=== PATIENT | female | born 2000 | race Caucasian/White ===

== ENCOUNTER 2023-07-02 02:31 | Observation (INO) | payer BC, SELFPAY ==
[2023-07-02] VITALS (39 sets, daily range): BP systolic 121–187; BP diastolic 57–110; PULSE 76–106; RESP 16–20; TEMP 36.4–37; O2SAT 94–100; BMI 53.1
--- NOTE | 2023-07-02 02:40 | PC.NURSE ---
in room talking with patient at this time.
--- NOTE | 2023-07-02 02:45 | PC.NURSE ---
india Martin at this time.
--- NOTE | 2023-07-02 02:47 | HMH.EDGENADL ---
Discharge Plan Disposition Patient Disposition: Admitted Condition: Fair Chief Complaint: Recheck/Abnormal Lab/Rx Clinical Impressions Clinical Impression: Pre-eclampsia Qualifiers: Trimester: unspecified trimester Qualified Code(s): O14.90 - Unspecified pre-eclampsia, unspecified trimester Discharge ED Provider: Cayla Briggs General Adult HPI General Stated complaint: High Blood Pressure, Time Seen by Provider: 07/02/23 02:36 History of Present Illness HPI narrative: This 23-year-old female G1, P1 6 days from induced vaginal delivery presents to the ER with concerns of hypertension. The day after delivery patient states she developed hypertension. She ended up spending 5 days in the hospital after delivery due to hypertension and was discharged home in the last day and a half. She never received IV magnesium while hospitalized. She was discharged with blood pressures in the mid 130s and was instructed to call with blood pressures above 140. She states she has been taking her prescribed labetalol 200 mg every 8 hours as directed and has not missed any doses. Most recent dose was at 10 PM, nearly 5 hours prior to arrival. Patient states anytime she takes the labetalol she gets extremely shaky though it does briefly improve her blood pressure. She states tonight her blood pressure was as low as the mid 140s, but she rechecked it and she has been 166/110 at home. On arrival she was 165/110 in the ER. Patient states she also gets back pain on her blood pressure is high. Patient states she is also taking iron. She states she has not had any changes in urination, no new shortness of breath, no dizziness, patient states she has been having right hand numbness/abnormal sensation since about 32 weeks gestational age. No new neurologic deficits. Patient states she has lower extremity swelling but this has been persistent since 32 weeks of and is actually somewhat improved. Related Data Allergies Allergy/AdvReac Type Severity Reaction Status Date / Time No Known Allergies Allergy Verified 07/02/23 03:03 [facility] Disclaimer: The information contained in this section may have been updated after the patient was seen, as this information can be updated by other users. Social History Smoking Status: Never smoker alcohol intake: never current occupational status: unemployed Travel in the last 8 weeks: None ROS Obtained: Yes All systems reviewed & no additional complaints except as documented Constitutional Constitutional: Denies chills, Denies fever(s), Denies headache(s) and Denies weakness Eyes Eyes: Denies change in vision ENT Ears, Nose, Mouth, and Throat: Denies dizziness, Denies headache(s), Denies nasal congestion and Denies sore throat Cardiovascular Cardiovascular: Denies chest pain, Denies dyspnea and Reports leg edema Respiratory Respiratory: Denies cough and Denies dyspnea Gastrointestinal Gastrointestingal: Denies constipation, diarrhea, nausea or vomiting Genitourinary Female Genitourinary: Denies dysuria Musculoskeletal Musculoskeletal: Denies arthralgias, Denies myalgias, Denies numbness and Denies tingling Integumentary/Breasts Skin/Breast: Denies change in pigmentation Neurologic Neurologic: Denies dizziness, Denies headache(s), Denies numbness, Denies tingling and Denies weakness Physical Exam General General appearance: alert and in no apparent distress Head Head exam: atraumatic and normocephalic Eye Eye exam: Present PERRL and EOMI ENT ENT exam: Present mucous membranes moist Neck Neck exam: Present normal inspection and full ROM Chest Chest inspection: Present symmetric chest wall rise Respiratory Respiratory exam: Present normal lung sounds bilaterally; Absent respiratory distress, wheezes or stridor Cardiovascular Cardiovascular exam: Present regular rate and normal rhythm Abdominal Exam Abdominal exam: Present soft; Absent distention, tenderness, guarding or rebound Comment: Soft, nontender abdomen Extremities Exam Extremities exam: Present full ROM and edema (2+) Back Exam Back exam: Absent CVA tenderness (R) or CVA tenderness (L) Neurological Exam Neurological exam: Present alert, oriented X3 and motor sensory deficit (Right hand numbness is at baseline since 32 weeks gestational age. She says this is unchanged.) Psychiatric Psychiatric exam: Present normal affect and normal mood Skin Skin exam: Present warm, dry and rash (Faint erythematous rash with raised patches over the lumbar back which patient states is from adhesive. No open wounds, no vesicles) Medical Decision Making Nathaniel Inquiry Pt receiving controlled substance: No Orders (Tests/Meds): ED MEDICATIONS Generic Name Dose Route Start Last Admin Trade Name Freq PRN Reason Stop Dose Admin Labetalol HCl 20 mg 07/02/23 02:45 Labetalol 5mg/Ml 20ml Mdv IV 07/02/23 02:46 ONCE ONE ORDERS Category Date Time Status CBC w/Auto Diff [Complete Blood Count Auto Diff] Stat Lab 07/02/23 02:45 Ordered CMP [Comprehensive Metabolic Panel] Stat Lab 07/02/23 02:45 Ordered LDH [Lactate Dehydrogenase] Stat Lab 07/02/23 02:45 Ordered Magnesium Stat Lab 07/02/23 02:45 Ordered Uric Acid Stat Lab 07/02/23 02:45 Ordered Urinalysis and Microscopic Stat Lab 07/02/23 02:45 Ordered Medical Decision Narrative: In summary, this 23year old female presents to the emergency department today with concerns of hypertension 6 days . On initial evaluation patient is hypertensive with blood pressure 165/110 on arrival, otherwise hemodynamically stable, no chest pain or shortness of breath, no CVA tenderness, no abdominal pain or tenderness, no new neurologic deficits, no vision changes, peripheral edema is improved from prior but present at 2+. Differential diagnosis includes but is not limited to preeclampsia, proteinuria, kidney dysfunction, HELLP, thrombocytopenia, risk of eclampsia the patient is not having active seizures at this time or other neurologic deficits. Based on these concerns, I ordered CBC, CMP, urinalysis, LDH, uric acid. Patient received IV labetalol and IV magnesium was ordered for treatment. I discussed this patient with Dr. Marks with OB. He recommended the IV labetalol that I had already ordered as well as IV magnesium and stated there are protocols up on the OB floor for patient's ongoing symptoms. He is in agreement with my laboratory workup. He stated the patient should go directly to OB. She is hypertensive but hemodynamically stable and neurologically intact and does not require other acute management in the ER so she is appropriate for admission to the OB service. Labs have not resulted at the time of her admission. Critical Care Critical Care Time Critical Care Time: No
--- NOTE | 2023-07-02 02:49 | PC.NURSE ---
o/p with at this time.
--- NOTE | 2023-07-02 02:54 | PC.NURSE ---
patient being admitted to OB per .
[2023-07-02 03:05] LABS: Basophils # 0.1 K/mm3 (0-0.2); Basophils % 0.4 % (0.1-2.0); Eosinophils # 0.3 K/mm3 (0.0-0.4); Eosinophils % 2.5 % (0.1-12.0); Hematocrit 26.7 % (37.0-47.0); Hemoglobin 8.5 g/dL (12.2-16.2); Lymphocytes # 2.5 K/mm3 (0.7-4.5); Lymphocytes % 21.3 % (10-50); Mean Corpuscular HGB Conc 31.9 g/dL (31.8-35.4); Mean Corpuscular Hemoglobin 27.1 pg (27.0-31.2); Mean Corpuscular Volume 84.9 fl (81-99); Mean Platelet Volume 8.1 fl (7.4-10.4); Monocytes # 0.5 K/mm3 (0.1-1.0); Monocytes % 4.4 % (1.7-9.3); Neutrophils # 8.3 K/mm3 (1.8-7.8); Neutrophils % 71.4 % (37.0-80.0); Platelet Count 419 K/mm3 (142-424); Red Blood Count 3.14 M/mm3 (4.20-5.40); Red Cell Distribution Width 16.2 % (11.5-17.5); White Blood Count 11.6 K/mm3 (4.8-10.8)
[2023-07-02] MEDS: LABETALOL 5MG/ML 20ML MDV 20 MG IV ×2 (03:05→19:37)
--- NOTE | 2023-07-02 03:05 | PC.NURSE ---
Nurse to nurse report given to Sharda LOZADA
[2023-07-02 03:13] LABS: Alanine Aminotransferase 90 U/L (12-78); Albumin Level 3.4 g/dl (3.5-5.0); Albumin/Globulin Ratio 1.1 (1.1-1.8); Alkaline Phosphatase 139 U/L (38-126); Anion Gap 7.6 mEq/L (5-15); Aspartate Amino Transferase 93 U/L (14-36); Bilirubin,Total 0.3 mg/dl (0.2-1.3); Blood Urea Nitrogen 12 mg/dl (7-17); Calcium 8.6 mg/dl (8.4-10.2); Carbon Dioxide 24 mmol/L (22.0-30.0); Chloride 109 mmol/L (98-107); Creatinine Clearance Estimated 106 mL/min (50-200); Estimated Glomerular Filt Rate 125 ml/min (>60); GFR (African American) 151 ML/MIN (>60); Globulin 3.1 g/dL (1.3-3.2); Glucose 87 mg/dl (74-100); Lactate Dehydrogenase 415 U/L (313-618); Magnesium 1.9 mg/dl (1.6-2.3); Potassium 3.6 mmoL/L (3.5-5.1); Sodium 137 mmol/L (136-145); Total Protein,Serum 6.5 g/dl (6.3-8.2); Uric Acid 6.3 mg/dl (2.5-6.2)
[2023-07-02 03:25] LABS: Activated Partial Thrombo Time 24.2 seconds (22.8-30.6); Fibrinogen 364 mg/dL (229.9-363.5); INR 0.93 (0.9-1.1); Prothrombin Time 10.1 seconds (10.1-12.5)
[2023-07-02] MEDS: MAGNESIUM SULFATE IN WATER 4 GM/50 ML PIGGYBACK IV (03:29)
--- NOTE | 2023-07-02 03:30 | PC.NURSE ---
Patient's DTR are +3 bilateral patella.
[2023-07-02 03:46] LABS: Microscopic, Urine URINE MICROSCOPIC (MICROSCOPIC)
[2023-07-02 03:47] LABS: Appearance,Urine CLEAR (Clear); Bilirubin,Urine Negative (Negative); Blood, Urine 3+ (Negative); Color,Urine YELLOW (Yellow); Glucose,Urine (UA) Negative (Negative); Ketones,Urine Negative (Negative); Leukocyte Esterase,Urine 2+ (Negative); Nitrate,Urine Negative (Negative); PH,Urine 6.5 (5.0-8.5); Protein,Urine Negative (Negative); Specific Gravity, Urine <= 1.005 (1.005-1.030); Urobilinogen,Urine 0.2 EU/dl (0.2)
[2023-07-02] MEDS: MAGNESIUM SULFATE IN WATER 20 GM/500 ML IV.SOLN IV ×2 (03:51→13:59)
[2023-07-02 04:08] LABS: Bacteria,Urine 1+ /lpf
--- NOTE | 2023-07-02 05:10 | PC.NURSE ---
UPONE ENTERING ROOM PT WAS LAYING ON HER LEFT SIDE WITH EYES CLOSED.REPORTS SHE NEEDS TO GO TO BATHROOM ASSISTED PT WITH IV POLE TO BR.PT DENIES ANY H/A,DIZZINESS OR BLURRED VISION. IN BR WITH PT
--- NOTE | 2023-07-02 05:30 | PC.NURSE ---
PT RETURNED TO BED.LUNGS CLEAR,DTR'S 2+,NO CLONUS.2+ PITTING EDEMA,PT DENIES ANY PAIN.NO NEEDS OR CONCERNS VOICED
--- NOTE | 2023-07-02 07:30 | PC.NURSE ---
REPORT GIVEN TO KIERRA EASTMAN AND ALEXIARN
[2023-07-02] MEDS: LABETALOL 100MG TABLET 200 MG PO ×2 (07:32→15:24)
[2023-07-02] MEDS: ACETAMINOPHEN 325MG TAB 650 MG PO (07:36)
[2023-07-02] MEDS: ONDANSETRON 4MG/2ML VIAL 4 MG IV (08:15)
[2023-07-02 08:39] LABS: Basophils # 0.1 K/mm3 (0-0.2); Basophils % 0.4 % (0.1-2.0); Eosinophils # 0.3 K/mm3 (0.0-0.4); Eosinophils % 2.8 % (0.1-12.0); Hematocrit 24.8 % (37.0-47.0); Lymphocytes # 2.2 K/mm3 (0.7-4.5); Lymphocytes % 19.1 % (10-50); Mean Corpuscular HGB Conc 32.2 g/dL (31.8-35.4); Mean Corpuscular Hemoglobin 27.3 pg (27.0-31.2); Mean Corpuscular Volume 84.8 fl (81-99); Mean Platelet Volume 7.9 fl (7.4-10.4); Monocytes # 0.5 K/mm3 (0.1-1.0); Monocytes % 4.2 % (1.7-9.3); Neutrophils # 8.4 K/mm3 (1.8-7.8); Neutrophils % 73.6 % (37.0-80.0); Platelet Count 395 K/mm3 (142-424); Red Blood Count 2.93 M/mm3 (4.20-5.40); Red Cell Distribution Width 16.3 % (11.5-17.5); White Blood Count 11.4 K/mm3 (4.8-10.8)
[2023-07-02 08:44] LABS: Magnesium 4.8 mg/dl (1.6-2.3)
[2023-07-02 08:45] LABS: Alanine Aminotransferase 86 U/L (12-78); Alkaline Phosphatase 151 U/L (38-126); Anion Gap 7.6 mEq/L (5-15); Aspartate Amino Transferase 90 U/L (14-36); Bilirubin,Total 0.4 mg/dl (0.2-1.3); Blood Urea Nitrogen 11 mg/dl (7-17); Calcium 7.6 mg/dl (8.4-10.2); Carbon Dioxide 24 mmol/L (22.0-30.0); Chloride 107 mmol/L (98-107); Creatinine Clearance Estimated 91 mL/min (50-200); Estimated Glomerular Filt Rate 105 ml/min (>60); GFR (African American) 127 ML/MIN (>60); Glucose 93 mg/dl (74-100); Potassium 3.6 mmoL/L (3.5-5.1); Sodium 135 mmol/L (136-145); Uric Acid 7.5 mg/dl (2.5-6.2)
--- NOTE | 2023-07-02 09:10 | PC.NURSE ---
Reflexes 2+, no clonus noted. 3+ edema noted. No shortness of breath noted, lungs cta.
--- NOTE | 2023-07-02 09:34 | EXP.HP ---
History of Present Illness *Admission Date: 07/02/23 *Reason for visit:: Labor *History of present illness: Marissa Jean Baptiste is a 23yo s/p on 06/26/23 at [place]. Her was complicated by preeclampsia and she was delivered at 37 weeks and 3 days gestation. They did not administer magnesium during her hospital stay but they did start labetalol immediately and discharged her home with labetalol 200 mg 3 times daily. She reports that she has had headaches on and off since discharge most recently reports a headache that started last night and states that it significantly painful behind her eyes. Denies any vision changes or right upper quadrant pain. Reports that typically her headache improves with ibuprofen. She does not take any pain medicine because she does not like the way it makes her feel. States her primary goal is to get home as soon as she can. She is breast-feeding her male who is in the room with her. On arrival to the ED she received 1 dose of labetalol 20 mg IV. Patient denies any symptoms of anxiety or depression Medications: Labetalol 200 mg 3 times daily, iron p.o. 3 times daily, stool softener, ibuprofen as needed for 6 PFSH PFSH Disclaimer: The information contained in this section may have been updated after the patient was seen, as this information can be updated by other users. Social History (Updated 07/02/23 @ 03:12 by Cayla Briggs MD) Smoking Status: Never smoker alcohol intake: never current occupational status: unemployed Travel in the last 8 weeks: None Review of Systems Review of Systems Review of systems (narrative): Review of Systems Constitutional: Denies fever, chills, and sweats Eyes: Denies vision change/ pain Respiratory: Denies cough and shortness of breath Cardiovascular: Denies chest pain and lightheadedness Gastrointestinal: Denies abdominal pain. Denies nausea, vomiting. Genitourinary: Denies dysuria and incontinence Musculoskeletal: Denies shoulder pain and back pain Neurological: Denies change in speech. Endorses headaches Constitutional Constitutional: Reports headache(s) and Denies weakness ENT Ears, Nose, Mouth, and Throat: Denies dizziness and Reports headache(s) *Cardiovascular Cardiovascular: Denies dyspnea and Denies dyspnea on exertion *Respiratory Respiratory: Reports as per HPI, Denies chest congestion, Denies cough, Denies dyspnea, Denies dyspnea on exertion and Denies wheezing *Gastrointestinal Gastrointestinal: Reports as per HPI, Denies abdominal pain, Denies change in bowel habits, Denies change in stool character and Reports constipation (taking iron TID) *Genitourinary Genitourinary: Reports as per HPI *Musculoskeletal Musculoskeletal: Denies numbness and Denies tingling *Neurologic Neurologic: Denies dizziness, Reports headache(s), Denies numbness, Denies tingling and Denies weakness Psychiatric Psychiatric: Denies anxiety, Denies depression, Denies difficulty concentrating and Denies mood swings Allergic/Immunologic Allergic/Immunologic: Denies wheezing Meds Home Medications and Allergies Home Medications Medication Instructions Recorded Confirmed Type labetalol 200 mg tablet 200 mg PO TID High Blood Pressure 07/02/23 07/02/23 History New Prescriptions to Start Prescriptions: Allergies Allergy/AdvReac Type Severity Reaction Status Date / Time adhesive tape Allergy Rash Verified 07/02/23 04:29 Exam Data for Last 24 hours Vital signs and Labs for Last 24 Hours: Temp Pulse Resp BP Pulse Ox O2 Del Method 98.6 F 92 H 17 187/89 H 99 Room Air 07/02/23 03:27 07/02/23 06:15 07/02/23 06:15 07/02/23 06:15 07/02/23 03:49 07/02/23 08:00 Laboratory Results - last 24 hr 07/02/23 02:53: WBC 11.6 H, RBC 3.14 L, Hgb 8.5 L, Hct 26.7 L, MCV 84.9, MCH 27.1, MCHC 31.9, RDW 16.2, Plt Count 419, MPV 8.1, Neut % (Auto) 71.4, Lymph % (Auto) 21.3, Spencer % (Auto) 4.4, Eos % (Auto) 2.5, Baso % (Auto) 0.4, Neut # (Auto) 8.3 H, Lymph # (Auto) 2.5, Spencer # (Auto) 0.5, Eos # (Auto) 0.3, Baso # (Auto) 0.1, PT 10.1, INR 0.93, APTT 24.2, Fibrinogen 364 H, Sodium 137, Potassium 3.6, Chloride 109 H, Carbon Dioxide 24, Anion Gap 7.6, BUN 12, Creatinine 0.60, Estimated Creat Clear 106, Estimated GFR 125, Est GFR ( Amer) 151, Glucose 87, Uric Acid 6.3 H, Calcium 8.6, Magnesium 1.9, Total Bilirubin 0.3, AST 93 H, ALT 90 H, Alkaline Phosphatase 139 H, Lactate Dehydrogenase 415, Total Protein 6.5, Albumin 3.4 L, Globulin 3.1, Albumin/Globulin Ratio 1.1 07/02/23 03:07: Urine Color Yellow, Urine Appearance Clear, Urine pH 6.5, Ur Specific [place] <= 1.005, Urine Protein Negative, Urine Glucose (UA) Negative, Urine Ketones Negative, Urine Blood 3+, Urine Nitrate Negative, Urine Bilirubin Negative, Urine Urobilinogen 0.2, Ur Leukocyte Esterase 2+ A, Urine RBC 3-5, Urine WBC 5-10, Ur Squamous Epith Cells 3-5, Urine Bacteria 1+ 07/02/23 08:24: WBC 11.4 H, RBC 2.93 L, Hgb 8.0 L, Hct 24.8 L, MCV 84.8, MCH 27.3, MCHC 32.2, RDW 16.3, Plt Count 395, MPV 7.9, Neut % (Auto) 73.6, Lymph % (Auto) 19.1, Spencer % (Auto) 4.2, Eos % (Auto) 2.8, Baso % (Auto) 0.4, Neut # (Auto) 8.4 H, Lymph # (Auto) 2.2, Spencer # (Auto) 0.5, Eos # (Auto) 0.3, Baso # (Auto) 0.1, Sodium 135 L, Potassium 3.6, Chloride 107, Carbon Dioxide 24, Anion Gap 7.6, BUN 11, Creatinine 0.70, Estimated Creat Clear 91, Estimated GFR 105, Est GFR ( Amer) 127, Glucose 93, Uric Acid 7.5 H, Calcium 7.6 L, Magnesium 4.8 H D, Total Bilirubin 0.4, AST 90 H, ALT 86 H, Alkaline Phosphatase 151 H, Total Protein 6.0 L, Albumin 3.0 L D, Globulin 3.0, Albumin/Globulin Ratio 1.0 L I & O for Last 24 hours: Intake & Output 06/29/23 06/30/23 07/01/23 07/02/23 23:59 23:59 23:59 23:59 Output Total 900 / 900 Balance -900 / -900 Weight 272 lb Constitutional Constitutional: no acute distress *Routine HEENT Exam Head: Present normocephalic and atraumatic Eye: Present EOMI, PERRL and normal accommodation; Absent conjunctival icterus, scleral injection, nystagmus or exophthalmos ENT: Present mucous membranes moist *Routine Neck Exam Neck: Present supple; Absent lymphadenopathy *Routine Respiratory Exam Respiratory: Present CTA bilaterally, normal respiratory effort, able to speak in complete sentences and symmetric chest movement; Absent accessory muscle use, decreased breath sounds, rales, respiratory distress, wheezes, distant breath sounds or diminished air movement *Routine Cardiovascular Exam Cardiovascular: Present RRR, Normal S1 and Normal S2; Absent murmur or gallop *Routine Abdominal Exam Abdominal: Present soft and normoactive bowel sounds; Absent tenderness, distended, rebound or guarding *Routine Rectal Exam Rectal:: deferred *Routine Genitalia Exam Genitalia:: normal female *Routine Extremities Exam Extremities: Present full ROM; Absent cyanosis, clubbing, edema or tenderness Comments: Reflexes plus 2 out of 4 bilaterally *Routine Skin Exam Skin: Present warm; Absent rash *Routine Neurological Exam Neurological: Present alert and oriented X3 Detailed Neurological Exam DTR: 2+: patellar (L) and patellar (R) Assessment and Plan *Assessment and plan (1) Pre-eclampsia: Status: Acute Qualifiers: Trimester: unspecified trimester Qualified Code(s): O14.90 - Unspecified pre-eclampsia, unspecified trimester Category: Medical Code(s): O14.90 - Unspecified pre-eclampsia, unspecified trimester Plan #Preeclampsia -Admit -follow labetalol protocol for BP > 160/110 -Continue labetalol 200mg PO q8hr -[facility] labs ordered -Transaminitis noted following AST/ALT: 93/90. Repeat with a.m. labs -Creatinine: 0.6-->0.7 -Start magnesium with a 4 g loading dose and then 2 g/h maintenance dose -Strict I's and O's -Tylenol as needed for headache -Stat magnesium level ordered #Anemia -Currently taking iron 3 times daily -Decreases to every other day -IV iron infusion ordered -Hemoglobin: 8.0. MCV: 84.8. Likely chronic anemia exacerbated by acute blood loss with delivery Anticipate magnesium x 24 hours. If her blood pressure remains stable we will turn magnesium often DC her home tomorrow
[2023-07-02] MEDS: ACETAMINOPHEN 500MG TAB 1000 MG PO ×2 (11:41→22:02)
[2023-07-02] MEDS: IBUPROFEN 400 MG TABLET 800 MG PO ×2 (11:41→19:10)
--- NOTE | 2023-07-02 11:41 | PC.NURSE ---
Addendum entered by Nikki Kramer RN 07/02/23 12:29: Reflexes 2+, no clonus noted, no SOA reported, Lungs CTA. [facility] for headache. patient refusing another IV. WIll medicate for ibuprofen and Tylenol and then re-evaluate pain.
--- NOTE | 2023-07-02 12:00 | PC.NURSE ---
Clonus absent, reflexes 2+, Resp. WNL, Lungs CTA.
--- NOTE | 2023-07-02 13:00 | PC.NURSE ---
Patient resting in bed. No distress noted. Magnesium infusing at this time No distress noted. Family at bedside.
--- NOTE | 2023-07-02 14:11 | PC.NURSE ---
Patient resting in bed at this time. Reflexes 2+, no clonus noted, edema 3+ noted to pedal. Resp. WNL. Lungs CTA. Headache decreasing per patient. Mom at bedside. No current needs. Seizure precautions in place.
--- NOTE | 2023-07-02 15:45 | PC.NURSE ---
Reassessment done at this time- no changed. Patient reportes I feel the best I have felt this whole admission. Reports improvement in her headache, denies right abdominal pain. Edema 3+ to ble, no clonus noted and reflexes 2+. Pt reports normal amount of lochia. passing gas and having bowel movements. Resp. WNL. NO resp. distress noted. Patients mom remains at bedside.
--- NOTE | 2023-07-02 17:20 | PC.NURSE ---
pATIENT REPORTS TO NURSE I THREW AWAY THE HAT IN THE BATHROOM AND I AM NOT GOING TO USE IT ANYMORE BECAUSE IT KEEPS OVERFILLING EVERY TIME. PATIENT EDUCATED. REPORTS SHE WILL LET US KNOW WHEN SHE VOIDS.
[2023-07-02] MEDS: LACTATED RINGERS 1000ML 1,000 ML 75 ML IV (17:24)
--- NOTE | 2023-07-02 19:17 | PC.NURSE ---
nOTIFIED OF PATIENTS SYMPTOMS BY Donald MAURICE. NEW PRIMARY RN NOTIFIED Mj GARCIA. Mj GARCIA RN AT BEDSIDE. GAVE Donald MAURICE STAT MAG LEVEL ORDER.
--- NOTE | 2023-07-02 19:17 | PC.NURSE ---
PT REPORTS DIFFICULTY TAKING A DEEP BREATH, STATES SHE FEELS LIKE HER BP IS STARTING TO GO UP, AND FEELS LIKE SHE HAS A HEADACHE STARTING REQUESTING IBUPROFEN AT THIS TIME. IBUPROFEN ADMINISTERED PER AUG. TOYIN PRIMARY RN NOTIFIED. STAT MAG LEVEL ORDERED. BP 169/97.
--- NOTE | 2023-07-02 19:21 | PC.NURSE ---
PT HAD BEEN UP TO BATHROOM AND RANG OUT THAT SHE WAS DONE EATING,HER B/P CUFF HAD BEEN OFF.IT REAPPLIED AND B/P WAS 169/97.RECHECKED IT AND IT WAS 166/95.PT HAD REPORTED SHE FELT LIKE SHE COULD NOT GET HER BREATH,LUNGS CLEAR,SAT.LEVEL 100%,RESP.18.DTR'S NORMAL,NO CLONUS,LAB IN DRAWING A STAT MAG.LEVEL.
--- NOTE | 2023-07-02 19:32 | PC.NURSE ---
MANUAL B/P WAS 150/90
--- NOTE | 2023-07-02 19:37 | PC.NURSE ---
LABETAOL 20MG IV GIVEN PER KIERRA ENCARNACION ORDERED
--- NOTE | 2023-07-02 19:40 | PC.NURSE ---
WANTED HER B/P TAKEN EVERY 10 MINS FOR 1 HOUR,THEN 15 MINS FOR 1 HOUR,THEN EVERY 30 MINS FOR 1 HOUR THEN HOURLY.IF MAG.LEVEL IS TO HIGH MAY TURN MAG.DOWN TO 1GRAM/HR
--- NOTE | 2023-07-02 19:50 | PC.NURSE ---
REPORT RECEIVED FROM SHYRN
--- NOTE | 2023-07-02 19:50 | PC.NURSE ---
REPORT GIVEN TO Mj GARCIA RN
--- NOTE | 2023-07-02 20:30 | PC.NURSE ---
DTR'S NORMAL,NO CLONUS,LUNGS CLEAR,PT REFUSED TODAY TO USE HER MEASSURING HAT TO MONITOR URINE OUTPUT BECAUSE THE HAT WOULD OVER FLOW AND GOT ON HER PANTIES,PT REPORTS VOIDING ADEQUATE AMT.
--- NOTE | 2023-07-02 21:30 | PC.NURSE ---
LUNGS CLEAR,DTR'S NORMAL,NO CLONUS.PT ASKING QUESTIONS ABOUT THE MAG.IF IT COULD BE TURNED OFF NOW,BECAUSE SHE DID NOT LIKING THE WAY IT MADE HER FEEL,STRESSED THE NEED FOR IT AND SHE SAID WHEN IT GETS TURNED OFF AT 3AM IS IT WEENED OFF OR ALL AT ONCE AND WAS COMING IN TO EXPLAIN THE PLANS,TOLD HER IT WAS BEING TURNED OFF AT 3 AND DILLON WOULD NOT BE HERE UNTIL IN THE MORNING.SHE SAID HER B/P ARE STILL HIGH LIKE THEY WAS THE 5 DAYS AT OTHER HOSPITAL AND SHE DID NOT HAVE ANY SEIZURES.TOLD HER THAT IT COULD HAPPEN WITH ELEVATED B/P.TOLD HER THAT IT COULD BE THAT SHE HAS NOT HAD MUCH SLEEP AND HER SPOKE UP AND SAID THAT SHE COULD NOT GET ANY SLEEP BECAUSE WE(STAFF) KEPT COMING IN AND BEATING ON HER.(CHECKING HER REFLEXES) EXPLAINED THE REASON FOR THIS.
--- NOTE | 2023-07-02 22:30 | PC.NURSE ---
DTR'S NORMAL,NO CLONUS,LUNGS CLEAR.RESP.EVEN AND UNLABORED AT 18
--- NOTE | 2023-07-02 23:00 | PC.NURSE ---
PT RANG OUT AND WANTED TO SPEAK WITH ABOUT HER PLANS FOR HER
--- NOTE | 2023-07-02 23:02 | PC.NURSE ---
NOTIFIED OF PT REQ TO [employer] WITH HER ABOUT HER PLANS FOR HER AND THAT THEY WAS QUESTIONING EVERY THING BEING DONE.NON COMPLAINT AT TIMES WITH MEASURRING HER URINE,FEQ.B/P AND THE MAG.SULFATE. ASKED TO BE TRANSFERED TO HER ROOM SO SHE COULD TALK WITH HER
--- NOTE | 2023-07-02 23:30 | PC.NURSE ---
LUNGS CLEAR,DTR'S NORMAL,NO CLONUS,RESP.EVEN AND UNLABORED AT 18.PT REPORTS SHE WOULD LIKE TO TALK WITH
--- NOTE | 2023-07-02 23:34 | PC.NURSE ---
ORDERS TO TURN MAG.SULFATE DOWN TO 1 GRAM REPEAT CBC AND CMP.INCREASE LABETALOL TO 300MG TID START NOW.AND IF B/P 166/110 CALL HER.
--- NOTE | 2023-07-02 23:35 | PC.NURSE ---
PT WAS STILL ON PHONE WITH AND AN AUTO B/P WAS 174/120,ADJUSTED CUFF AND GOT 166/100.AFTER SHE FINISHED WITH PHOME DECLAN A MANUAL WAS GOTTEN AND IT WAS 155/90,MAG.SULFATE WAS TURNED DOWN TO 1 GRAM.LUNGS CLEAR,DTR'SNORMAL,NO CLONUS,REAP.EVEN AND UNLABORED.LAB WAS HERE TO OBTAIN A CBC AND CMP
[2023-07-02] MEDS: LABETALOL 100MG TABLET 300 MG PO (23:42)
[2023-07-02 23:54] LABS: Basophils % 0.3 % (0.1-2.0); Eosinophils # 0.3 K/mm3 (0.0-0.4); Eosinophils % 3.1 % (0.1-12.0); Hematocrit 26.3 % (37.0-47.0); Hemoglobin 8.5 g/dL (12.2-16.2); Lymphocytes # 1.9 K/mm3 (0.7-4.5); Mean Corpuscular HGB Conc 32.2 g/dL (31.8-35.4); Mean Corpuscular Hemoglobin 27.4 pg (27.0-31.2); Mean Platelet Volume 8.9 fl (7.4-10.4); Monocytes # 0.4 K/mm3 (0.1-1.0); Monocytes % 3.4 % (1.7-9.3); Neutrophils # 8.4 K/mm3 (1.8-7.8); Neutrophils % 76.2 % (37.0-80.0); Platelet Count 444 K/mm3 (142-424); Red Blood Count 3.09 M/mm3 (4.20-5.40); Red Cell Distribution Width 16.4 % (11.5-17.5)
[2023-07-02 23:58] LABS: Chloride 105 mmol/L (98-107); Potassium 4.1 mmoL/L (3.5-5.1); Sodium 138 mmol/L (136-145)
[2023-07-03 00:01] LABS: Alanine Aminotransferase 92 U/L (12-78); Albumin Level 3.2 g/dl (3.5-5.0); Albumin/Globulin Ratio 1.1 (1.1-1.8); Alkaline Phosphatase 175 U/L (38-126); Anion Gap 11.1 mEq/L (5-15); Aspartate Amino Transferase 87 U/L (14-36); Bilirubin,Total 0.4 mg/dl (0.2-1.3); Blood Urea Nitrogen 8 mg/dl (7-17); Carbon Dioxide 26 mmol/L (22.0-30.0); Creatinine Clearance Estimated 79 mL/min (50-200); Estimated Glomerular Filt Rate 90 ml/min (>60); GFR (African American) 109 ML/MIN (>60); Total Protein,Serum 6.2 g/dl (6.3-8.2)
[2023-07-03 00:02] LABS: Calcium 6.6 mg/dl (8.4-10.2); Glucose 112 mg/dl (74-100)
--- NOTE | 2023-07-03 00:14 | PC.NURSE ---
DILLON CALLED BACK AND WANTED TO TALK TO PT AGAIN AND LET HER KNOW HER LABS AND PLANS.ENCOURAGED PT TO VOID IN MEASSURING HAT ,WHICH SHE SAID SHE WOULD.DILLON ALSO ORDERED A URIC ACID AND A URINE CREATINE AND THAT WANTED B/P LESS THAN 150/100 AND WHEN MAG IS TURNED OFF AT 0300 CAN TAKE HER B/P EVERY 3 HOURS SO SHE CAN SLEEP
--- NOTE | 2023-07-03 00:30 | PC.NURSE ---
PT LUNGS CLEAR,RESP.EVEN AND UNLABORED.DTR'S NORMAL,NO CLONUS
[2023-07-03 00:45] VITALS: BP 132/91; PULSE 83; RESP 17; O2SAT 99
--- NOTE | 2023-07-03 01:30 | PC.NURSE ---
DTR'S NORMAL,NO CLONUS,LUNGS CLEAR,RESP.EVEN AND UNLABORED
[2023-07-03 01:50] VITALS: BP 149/83; PULSE 93; RESP 17; O2SAT 99
[2023-07-03 02:00] VITALS: BP 138/70; PULSE 85; RESP 17; TEMP 36.7; O2SAT 99
--- NOTE | 2023-07-03 02:00 | PC.NURSE ---
TURNED MAG.SULFATE OFF AT 0200,BAG WAS EMPTY AND IT WAS GOING TO BE TURNED OFF AT 0300.LUNGS CLEAR,RESP.EVEN AND UNLABORED AT 17,SAT LEVEL 99% ON RA.DTR'S NORMAL,NO CLONUS,2+EDEMA IN BLE.PT GOING TO BATHROOM.B/P OBTAINED PRIOR TO GETTING UP AND IT WAS 138/70,PT REPORTS A MILD H/A MAYBE A 2 AND TOLERABLE.IV WAS SALINE LOCKED AT THIS TIME,NO NEEDS OR CONCERNS VOICED
[2023-07-03 02:37] LABS: Creatinine,Urine Random 28 mg/dL (Not Estab.)
[2023-07-03 02:55] LABS: Uric Acid 7.5 mg/dl (2.5-6.2)
--- NOTE | 2023-07-03 03:00 | PC.NURSE ---
PT SLEEPING SOUNDLY,RESP.EVEN AND UNLABORED.INFANT SLEEPING IN OPEN CRIB NEXT TO MOMS BED.
[2023-07-03 05:22] VITALS: BP 120/85; PULSE 96; RESP 17
--- NOTE | 2023-07-03 05:27 | PC.NURSE ---
PT LAYING ON HER LEFT SIDE.SHE WAS SLEEPING,EASILY AROUSED FOR B/P OF 120/85,HR OF 96.DENIES ANY NEEDS OR CONCERNS AT THIS TIME
[2023-07-03] MEDS: IBUPROFEN 400 MG TABLET 800 MG PO (06:42)
--- NOTE | 2023-07-03 06:51 | PC.NURSE ---
CALLED TO CHECK ON RESULTS OF LAST NIGHTS LABS AND LABS THIS MORNING.TOLD HER THE URINE CREATININE AND URINE PROTEIN,BUT LAB HAD NOT GOT THIS MORNING.REPORTED LAST B/P,NO NEW ORDERS
[2023-07-03 07:09] LABS: Basophils # 0.1 K/mm3 (0-0.2); Basophils % 0.4 % (0.1-2.0); Eosinophils # 0.3 K/mm3 (0.0-0.4); Eosinophils % 2.4 % (0.1-12.0); Hematocrit 26.3 % (37.0-47.0); Hemoglobin 8.5 g/dL (12.2-16.2); Lymphocytes % 16.6 % (10-50); Mean Corpuscular HGB Conc 32.2 g/dL (31.8-35.4); Mean Corpuscular Hemoglobin 27.1 pg (27.0-31.2); Mean Corpuscular Volume 84.1 fl (81-99); Mean Platelet Volume 8.8 fl (7.4-10.4); Monocytes # 0.4 K/mm3 (0.1-1.0); Monocytes % 3.4 % (1.7-9.3); Neutrophils # 9.4 K/mm3 (1.8-7.8); Neutrophils % 77.1 % (37.0-80.0); Platelet Count 445 K/mm3 (142-424); Red Blood Count 3.13 M/mm3 (4.20-5.40); Red Cell Distribution Width 16.5 % (11.5-17.5); White Blood Count 12.2 K/mm3 (4.8-10.8)
[2023-07-03 07:18] LABS: Alanine Aminotransferase 82 U/L (12-78); Albumin Level 3.3 g/dl (3.5-5.0); Albumin/Globulin Ratio 1.2 (1.1-1.8); Alkaline Phosphatase 145 U/L (38-126); Aspartate Amino Transferase 75 U/L (14-36); Bilirubin,Total 0.3 mg/dl (0.2-1.3); Blood Urea Nitrogen 9 mg/dl (7-17); Calcium 6.1 mg/dl (8.4-10.2); Carbon Dioxide 26 mmol/L (22.0-30.0); Chloride 105 mmol/L (98-107); Creatinine Clearance Estimated 70 mL/min (50-200); Estimated Glomerular Filt Rate 78 ml/min (>60); GFR (African American) 95 ML/MIN (>60); Globulin 2.8 g/dL (1.3-3.2); Glucose 84 mg/dl (74-100); Potassium 3.7 mmoL/L (3.5-5.1); Total Protein,Serum 6.1 g/dl (6.3-8.2)
--- NOTE | 2023-07-03 07:31 | PC.NURSE ---
REPORT GIVEN TO MITZYRN
[2023-07-03 07:49] LABS: Anion Gap 7.7 mEq/L (5-15); Sodium 135 mmol/L (136-145)
[2023-07-03 08:25] VITALS: O2SAT 100
--- NOTE | 2023-07-03 08:25 | PC.NURSE ---
ELDER Brachial and Patellar DTR present at plus 2 , Clonus absent
[2023-07-03] MEDS: IRON SUCROSE COMPLEX 200 MG in 0.9 % SODIUM CHLORIDE 100 ML 220 MG IV (08:28)
[2023-07-03] MEDS: LABETALOL 100MG TABLET 300 MG PO (08:29)
[2023-07-03 08:43] VITALS: BP 132/76; PULSE 98; RESP 16; TEMP 36.3; O2SAT 100
--- NOTE | 2023-07-03 09:50 | PC.NURSE ---
Addendum entered by Susan Stiles RN 07/03/23 10:55: Pt. wishes to leave in wheelchair nurse encouraged pt. to call out when ready for wheelchair. Pt. v/u. Original Note: Discharge education provided, questions encouraged and answered. Pt. v/u.
--- NOTE | 2023-07-03 10:15 | PC.NURSE ---
Pt. left unit via wheelchair. Pt. accompanied by hospital staff, and spouse carrying NB in car seat.
--- NOTE | 2023-07-03 15:11 | EXP.DC.SUM ---
General Admission date:: 07/02/23 Discharge date: 07/03/23 HPI HPI HPI: Marissa Jean Baptiste is a 23yo s/p on 06/26/23 at [facility]. Her was complicated by preeclampsia and she was delivered at 37 weeks and 3 days gestation. They did not administer magnesium during her hospital stay but they did start labetalol immediately and discharged her home with labetalol 200 mg 3 times daily. She reports that she has had headaches on and off since discharge most recently reports a headache that started last night and states that it significantly painful behind her eyes. Denies any vision changes or right upper quadrant pain. Reports that typically her headache improves with ibuprofen. She does not take any pain medicine because she does not like the way it makes her feel. States her primary goal is to get home as soon as she can. She is breast-feeding her male infant who is in the room with her. On arrival to the ED she received 1 dose of labetalol 20 mg IV. Patient denies any symptoms of anxiety or depression Medications: Labetalol 200 mg 3 times daily, iron p.o. 3 times daily, stool softener, ibuprofen as needed for 6 Hospital Course Hospital Course Hospital Course: pt doing well this am. She was admitted secondary to preeclampsia. Received 24 hours of magnesium via standard protocol for eclampsia prophylaxis. While admitted you had severe range blood pressures which were controlled with IV labetalol protocol. We also increased your p.o. labetalol dose from 200 mg 3 times daily to 300 mg 3 times daily. Of note we were following your liver function test secondary to a transaminitis. We are also following your kidney function secondary to a rising creatinine (0.6 on arrival and 0.9 on discharge). I offered inpatient observation given Cr elevation and decreased GFR but you elected for discharge with your . Given you reported you were urinating well, your headache was improving from arrival and you were improving clinally with shared decision making i elected to discharge you with close interval follow up. You willcheck your BP at home and drink 100+ ozof water a day. As I discussed with the you on the morning of discharge you will need to have repeat labs done tomorrow and schedule a follow-up visit with your [employer] in the next 3 days for labs and a BP check. Exam Data for Last 24 hours Vital signs and Labs for Last 24 Hours: Temp Pulse Resp BP Pulse Ox O2 Del Method 97.3 F L 98 H 16 132/76 100 Room Air 07/03/23 08:43 07/03/23 08:43 07/03/23 08:43 07/03/23 08:43 07/03/23 08:43 07/03/23 09:00 Laboratory Results - last 24 hr 07/02/23 19:29: Magnesium 7.0 H D 07/02/23 23:45: WBC 11.0 H, RBC 3.09 L, Hgb 8.5 L, Hct 26.3 L, MCV 85.0, MCH 27.4, MCHC 32.2, RDW 16.4, Plt Count 444 H, MPV 8.9, Neut % (Auto) 76.2, Lymph % (Auto) 17.0, [place] % (Auto) 3.4, Eos % (Auto) 3.1, Baso % (Auto) 0.3, Neut # (Auto) 8.4 H, Lymph # (Auto) 1.9, [place] # (Auto) 0.4, Eos # (Auto) 0.3, Baso # (Auto) 0.0, Sodium 138, Potassium 4.1, Chloride 105, Carbon Dioxide 26, Anion Gap 11.1, BUN 8 D, Creatinine 0.80, Estimated Creat Clear 79, Estimated GFR 90, Est GFR ( Amer) 109, Glucose 112 H D, Uric Acid 7.5 H, Calcium 6.6 L, Total Bilirubin 0.4, AST 87 H, ALT 92 H, Alkaline Phosphatase 175 H, Total Protein 6.2 L, Albumin 3.2 L, Globulin 3.0, Albumin/Globulin Ratio 1.1 07/03/23 02:04: Urine Creatinine 28, Urine Total Protein 22.0 H 07/03/23 06:54: WBC 12.2 H, RBC 3.13 L, Hgb 8.5 L, Hct 26.3 L, MCV 84.1, MCH 27.1, MCHC 32.2, RDW 16.5, Plt Count 445 H, MPV 8.8, Neut % (Auto) 77.1, Lymph % (Auto) 16.6, [place] % (Auto) 3.4, Eos % (Auto) 2.4, Baso % (Auto) 0.4, Neut # (Auto) 9.4 H, Lymph # (Auto) 2.0, [place] # (Auto) 0.4, Eos # (Auto) 0.3, Baso # (Auto) 0.1, Sodium 135 L, Potassium 3.7, Chloride 105, Carbon Dioxide 26, Anion Gap 7.7, BUN 9, Creatinine 0.90, Estimated Creat Clear 70, Estimated GFR 78, Est GFR ( Amer) 95, Glucose 84 D, Calcium 6.1 L, Total Bilirubin 0.3, AST 75 H, ALT 82 H, Alkaline Phosphatase 145 H, Total Protein 6.1 L, Albumin 3.3 L, Globulin 2.8, Albumin/Globulin Ratio 1.2 I & O for Last 24 hours: Intake & Output 06/30/23 07/01/23 07/02/23 07/03/23 23:59 23:59 23:59 23:59 Intake Total 1450 / 1450 Output Total 5900 / 5900 300 / 300 Balance -4450 / -4450 -300 / -300 Weight 272 lb Narrative: General: patient is alert oriented in no acute distress and responds appropriately to questions. Appears to be in minimal pain. resting inbed with infant HEENT: NCAT, EOMI, moist mucous membranes, neck supple with full ROM Cardiovascular: RRR +S1/S2, no murmurs or rubs Pulmonary: Clear to auscultation bilaterally, nonlabored breathing, symmetric chest rise Abdominal: Fundus below the umbilicus, firm, and tenderness appropriate for the period. Extremities: trace edema, no tenderness or cyanosis noted Skin: Normal turgor, intact, warm. Negative for erythema, pallor, petechia, or lesions Neurologic: Negative for sensory or motor deficit.+3/4 bilateral lower extremity reflexes Psychiatric: Normal affect, normal thought process, good judgment and insight, no depression or anxious mood appreciated. Constitutional Constitutional: no acute distress *Routine HEENT Exam Head: Present normocephalic Eye: Present EOMI and PERRL ENT: Present mucous membranes moist *Routine Neck Exam Neck: Present supple; Absent lymphadenopathy *Routine Respiratory Exam Respiratory: Present CTA bilaterally *Routine Cardiovascular Exam Cardiovascular: Present RRR *Routine Abdominal Exam Abdominal: Present soft and normoactive bowel sounds; Absent tenderness *Routine Extremities Exam Extremities: Absent cyanosis, clubbing or edema *Routine Skin Exam Skin: Present warm; Absent rash *Routine Neurological Exam Neurological: Present alert and oriented X3 Results Data Completed and Pending Labs on day of discharge: Labs from last 24 hours 07/03/23 07/03/23 07/02/23 06:54 02:04 23:45 WBC 12.2 H 11.0 H RBC 3.13 L 3.09 L Hgb 8.5 L 8.5 L Hct 26.3 L 26.3 L MCV 84.1 85.0 MCH 27.1 27.4 MCHC 32.2 32.2 RDW 16.5 16.4 Plt Count 445 H 444 H MPV 8.8 8.9 Neut % (Auto) 77.1 76.2 Lymph % (Auto) 16.6 17.0 [place] % (Auto) 3.4 3.4 Eos % (Auto) 2.4 3.1 Baso % (Auto) 0.4 0.3 Neut # (Auto) 9.4 H 8.4 H Lymph # (Auto) 2.0 1.9 [place] # (Auto) 0.4 0.4 Eos # (Auto) 0.3 0.3 Baso # (Auto) 0.1 0.0 Sodium 135 L 138 Potassium 3.7 4.1 Chloride 105 105 Carbon Dioxide 26 26 Anion Gap 7.7 11.1 BUN 9 8 D Creatinine 0.90 0.80 Estimated Creat Clear 70 79 Estimated GFR 78 90 Est GFR ( Amer) 95 109 Glucose 84 D 112 H D Uric Acid 7.5 H Calcium 6.1 L 6.6 L Magnesium Total Bilirubin 0.3 0.4 AST 75 H 87 H ALT 82 H 92 H Alkaline Phosphatase 145 H 175 H Total Protein 6.1 L 6.2 L Albumin 3.3 L 3.2 L Globulin 2.8 3.0 Albumin/Globulin Ratio 1.2 1.1 Urine Creatinine 28 Urine Total Protein 22.0 H 07/02/23 19:29 WBC RBC Hgb Hct MCV MCH MCHC RDW Plt Count MPV Neut % (Auto) Lymph % (Auto) [place] % (Auto) Eos % (Auto) Baso % (Auto) Neut # (Auto) Lymph # (Auto) [place] # (Auto) Eos # (Auto) Baso # (Auto) Sodium Potassium Chloride Carbon Dioxide Anion Gap BUN Creatinine Estimated Creat Clear Estimated GFR Est GFR ( Amer) Glucose Uric Acid Calcium Magnesium 7.0 H D Total Bilirubin AST ALT Alkaline Phosphatase Total Protein Albumin Globulin Albumin/Globulin Ratio Urine Creatinine Urine Total Protein DS: Diagnosis Discharge Diagnosis (1) Pre-eclampsia: Status: Acute Code(s): O14.90 - Unspecified pre-eclampsia, unspecified trimester Qualifiers: Trimester: unspecified trimester Qualified Code(s): O14.90 - Unspecified pre-eclampsia, unspecified trimester Problem details: #Preeclampsia -Admit -follow labetalol protocol for BP > 160/110 -increase labetalol to 300mg PO q8hr -PIH labs ordered -Transaminitis noted following AST/ALT: 93/90. Repeat with a.m. labs -Creatinine: 0.6-->0.7 > 0.8 > 0.9 -doing well since magnesium DC -Strict I's and O's. pt declined -Tylenol as needed for headache #Anemia -Currently taking iron 3 times daily -Decreases to every other day -IV iron infusion ordered and tolerated well -Hemoglobin: 8.0. MCV: 84.8. Likely chronic anemia exacerbated by acute blood loss with delivery Dc home with short interval follow up Meds Home Medications and Allergies Home Medications Medication Instructions Recorded Confirmed Type labetalol 300 mg tablet 300 mg PO Q8H #90 tabs 07/03/23 Rx New Prescriptions to Start Prescriptions: labetalol Nhi Jeffries Allergies Allergy/AdvReac Type Severity Reaction Status Date / Time adhesive tape Allergy Rash Verified 07/02/23 04:29 Discharge Plan Disposition Patient Disposition: Home, Self-Care Condition: Fair Follow up Plan Follow up with: Nhi Jeffries DO [Staff Physician] - 07/05/23 8:15 am (Please bring insurance card and Valid ID.) Prescriptions/Medication Reconciliation: New labetalol 300 mg tablet 300 mg PO Q8H Qty: 90 3RF Discontinued labetalol 200 mg Tablet 200 mg PO TID Problem Reconciliation Problems Reviewed?: Yes Patient Discharge Instructions ACTIVITY: Continue current activity and Ambulate as tolerated DIET: continue same diet and regular diet Additional Instructions: You are admitted secondary to preeclampsia. We gave you 24 hours of magnesium via standard protocol for eclampsia prophylaxis. While admitted you had severe range blood pressures which were controlled with IV labetalol protocol. We also increased your p.o. labetalol dose from 200 mg 3 times daily to 300 mg 3 times daily. Of note we were following your liver function test secondary to a transaminitis. We are also following your kidney function secondary to a rising creatinine. As I discussed with the you on the morning of discharge you will need to have repeat labs done tomorrow and schedule a follow-up visit with your [employer] in the next 3 days for labs and a BP check. Discharge: 1. Take 800 mg Ibuprofen every 8 hours as needed for pain. You can also take 500-1000 mg of Tylenol in between doses, every 6-8 hours. 2. Colace can be taken 1-2 times per day as you need. Make sure to drink at least 8 cups of water per day. 3. Iron supplements can make you constipated. Colace can be taken 1-2 times per day as you need. You can take iron tablets every other day if constipation is too bad. 4. Nothing in the vagina for 6 weeks - no sex, douching, tampons. No tub baths 5. Reasons to return to L&D or call On-Call doctor - fever (greater than 100.4) - heavy vaginal bleeding (soaking through 1 pad in less than 2 hours or passing clots that are egg sized) - vaginal discharge (malodorous and/or purulent) - severe headaches, leg tenderness/edema, or any other symptoms that warrant immediate medical attention. 6. depression/blues - Normal to feel anxious/overwhelmed for first 2 weeks - Talk to your doctor if: anxiety lasts over 2 weeks, trouble bonding with baby, withdrawing from other family members, thoughts of harming yourself or others Blood pressure and preeclampsia instructions 1. Please take your blood pressure twice daily. 2. Please call if greater than 2 values are higher than: 150 systolic (the top number) or 100 diastolic (the bottom number). 3. Please go to the emergency room or labor and delivery triage if any value is higher than: 160 systolic (the top number) or 110 diastolic (the bottom number). 4. Please call if unrelenting headache (does not go away with rest or Tylenol or ibuprofen), changes in vision (spots, floaters, flashes of light), chest pain, shortness of breath, or right upper quadrant (liver) abdominal pain. It is my privilege to care for you. Please let me know if there is anything else I can do for you Nhi Jeffries, DO [facility] [phone] *No strenuous activity* *No heavy lifting* *No tub baths until okay's by MD* Patient Instructions: DI for Pre-eclampsia Providers Primary Care Provider: Provider,Referral Admit Provider: Fidel Montano Attending Provider: Fidel Montano
== END 2023-07-03 10:15 | disposition home or self-care (01) ==
LOC: ER 02:54 → OB 03:12
PROVIDERS: Obstetrics & Gynecology; Admitting Provider Nurse Practitioner Obstetrics & Gynecology; Emergency Provider Emergency Medicine; Visit Provider Nurse Practitioner Obstetrics & Gynecology
DX: O14.95 Unspecified pre-eclampsia, complicating the puerperium (principal); O90.81 Anemia of the puerperium
CPT/HCPCS: 36415; 80053; 81001; 82570; 83615; 83735; 84155; 84550; 85025; 85384; 85610; 85730; 87086; G0378; J1756; J2405

== ENCOUNTER 2023-07-04 09:03 | Outpatient (CLI) | payer BC, SELFPAY ==
[2023-07-04 09:34] LABS: Basophils # 0.1 K/mm3 (0-0.2); Basophils % 0.5 % (0.1-2.0); Eosinophils # 0.3 K/mm3 (0.0-0.4); Eosinophils % 2.5 % (0.1-12.0); Hematocrit 23.9 % (37.0-47.0); Hemoglobin 7.7 g/dL (12.2-16.2); Lymphocytes # 2.5 K/mm3 (0.7-4.5); Lymphocytes % 24.5 % (10-50); Mean Corpuscular HGB Conc 32.4 g/dL (31.8-35.4); Mean Corpuscular Hemoglobin 27.5 pg (27.0-31.2); Mean Platelet Volume 8.8 fl (7.4-10.4); Monocytes # 0.4 K/mm3 (0.1-1.0); Monocytes % 4.3 % (1.7-9.3); Neutrophils # 6.8 K/mm3 (1.8-7.8); Neutrophils % 68.2 % (37.0-80.0); Platelet Count 410 K/mm3 (142-424); Red Blood Count 2.81 M/mm3 (4.20-5.40); Red Cell Distribution Width 16.8 % (11.5-17.5)
[2023-07-04 10:07] LABS: Alanine Aminotransferase 59 U/L (12-78); Albumin Level 2.8 g/dl (3.5-5.0); Albumin/Globulin Ratio 1.1 (1.1-1.8); Alkaline Phosphatase 153 U/L (38-126); Anion Gap 10.2 mEq/L (5-15); Aspartate Amino Transferase 56 U/L (14-36); Bilirubin,Total 0.2 mg/dl (0.2-1.3); Blood Urea Nitrogen 14 mg/dl (7-17); Calcium 6.8 mg/dl (8.4-10.2); Carbon Dioxide 24 mmol/L (22.0-30.0); Chloride 106 mmol/L (98-107); Estimated Glomerular Filt Rate 90 ml/min (>60); GFR (African American) 109 ML/MIN (>60); Globulin 2.6 g/dL (1.3-3.2); Glucose 74 mg/dl (74-100); Potassium 4.2 mmoL/L (3.5-5.1); Sodium 136 mmol/L (136-145); Total Protein,Serum 5.4 g/dl (6.3-8.2)
== END 2023-07-04 23:59 ==
LOC: LAB 09:04
PROVIDERS: Visit Provider Obstetrics & Gynecology
DX: O14.90 Unspecified pre-eclampsia, unspecified trimester (principal)
CPT/HCPCS: 36415; 80053; 85025